=== PATIENT | female | born 1985 | race Caucasian/White ===

== ENCOUNTER → 2019-09-18 11:44 | Outpatient (BNVA) | payer BC, SELFPAY | PROVIDERS: Family Provider Nurse Practitioner Family; PCP Nurse Practitioner Family; Visit Provider Nurse Practitioner Family | DX: B37.0 Candidal stomatitis (principal) | CPT/HCPCS: 36416; 82962 ==

== ENCOUNTER → 2019-09-26 14:51 | Outpatient (BNVA) | payer BC, SELFPAY | PROVIDERS: Family Provider Nurse Practitioner Family; PCP Nurse Practitioner Family; Visit Provider Nurse Practitioner Family | DX: J02.9 Acute pharyngitis, unspecified (principal); H65.192 Other acute nonsuppurative otitis media, left ear | CPT/HCPCS: 87070; 87880 ==

== ENCOUNTER → 2019-10-02 10:49 | Outpatient (BNVA) | payer BC, SELFPAY | PROVIDERS: Family Provider Nurse Practitioner Family; PCP Nurse Practitioner Family; Visit Provider Nurse Practitioner Family | DX: Q38.3 Other congenital malformations of tongue (principal); R53.83 Other fatigue | CPT/HCPCS: 80053; 87806 ==

== ENCOUNTER → 2020-04-15 09:37 | Outpatient (BNVA) | payer BC, SELFPAY | PROVIDERS: Family Provider Nurse Practitioner Family; PCP Nurse Practitioner Family; Visit Provider Nurse Practitioner Family | DX: R10.11 Right upper quadrant pain (principal); L65.9 Nonscarring hair loss, unspecified; Z68.27 Body mass index [BMI] 27.0-27.9, adult | CPT/HCPCS: 80053; 81000; 82150; 83690; 84439; 84443 ==